=== PATIENT | male | born 1970 | race Caucasian/White ===

== ENCOUNTER 2018-01-03 11:02 | Emergency (ER) | payer MEDICAID ==
[~2018-01-03] VITALS: Ht 167.6 cm; Wt 58.1 kg
[2018-01-03 11:18] VITALS: BP 143/102
[2018-01-03] MEDS ORDERED: NACL 0.9% 1,000 ML IV ONE (11:40)
[2018-01-03] MEDS ORDERED: FAMOTIDINE 20 MG/2 ML VIAL IVP ONE (12:15)
[2018-01-03] MEDS ORDERED: ONDANSETRON 4 MG/2 ML VIAL IVP ONE (12:15)
[2018-01-03] MEDS ORDERED: ceFAZolin 1,000 MG VIAL ONE (12:15)
[2018-01-03] MEDS ORDERED: MORPHINE SULFATE 2 MG/ML SYR IVP ONE (12:15)
[2018-01-03 12:38] LABS: BASOPHILS % (AUTO) 0.3 % (0.0-2.0); EOSINOPHILS # (AUTO) 0.1 K/uL (0-0.4); EOSINOPHILS % (AUTO) 1.2 % (0.0-4.0); HEMATOCRIT 44.4 % (36-52); HEMOGLOBIN 14.6 g/dL (12.0-18.0); LYMPHOCYTES # (AUTO) 1.5 K/uL (2.0-11.5); LYMPHOCYTES % (AUTO) 16.3 % (20.5-51.1); MEAN CORPUSCULAR HEMOGLOBIN 29 pg (27-31); MEAN CORPUSCULAR HGB CONC 33 g/dL (33-37); MEAN CORPUSCULAR VOLUME 87.8 fL (80-94); MONOCYTES # (AUTO) 0.7 K/uL (0.8-1.0); NEUTROPHILS % (AUTO) 75.2 % (42.2-75.2); PLATELET COUNT (AUTO) 144 K/uL (140-450); RED BLOOD CELL COUNT(AUTO) 5.06 MIL/uL (4.20-6.10); RED CELL DISTRIBUTION WIDTH 13.4 % (11.6-13.7); WHITE BLOOD COUNT (AUTO) 9.3 K/uL (4.8-10.8)
[2018-01-03 12:49] LABS: ANION GAP 7.5 (8-16); CARBON DIOXIDE 31.6 mmol/L (21-32); POTASSIUM 4.1 mmol/L (3.5-5.1)
[2018-01-03 12:53] LABS: PROTHROMBIN TIME 9.9 secs (10.8-13.4)
[2018-01-03 12:55] LABS: ALBUMIN 3.7 g/dL (3.4-5.0); TOTAL BILIRUBIN 0.5 mg/dL (0.0-1.0)
[2018-01-03 13:11] LABS: COLOR,URINE YELLOW (YELLOW)
[2018-01-03 13:12] LABS: BLOOD, URINE NEGATIVE (NEGATIVE); UGLUCOSE NEGATIVE (NEGATIVE)
[2018-01-03 13:13] LABS: APPEARANCE,URINE CLEAR (CLEAR); BILIRUBIN,URINE NEGATIVE (NEGATIVE); LEUKOCYTE ESTERASE ,URINE NEGATIVE (NEGATIVE); NITRITE, URINE NEGATIVE (NEGATIVE)
[2018-01-03 14:08] VITALS: BP 111/72
== END 2018-01-03 14:08 | disposition home or self-care (01) ==
LOC: MED 11:02
DX: S00.83XA Contusion of other part of head, initial encounter (principal); S20.20XA Contusion of thorax, unspecified, initial encounter; S80.02XA Contusion of left knee, initial encounter; S80.01XA Contusion of right knee, initial encounter; S30.1XXA Contusion of abdominal wall, initial encounter; I10 Essential (primary) hypertension; V09.9XXA Pedestrian injured in unspecified transport accident, initial encounter; Y93.I9 Activity, other involving external motion; Y92.488 Other paved roadways as the place of occurrence of the external cause; Y99.8 Other external cause status
CPT/HCPCS: 36415; 70450; 70486; 71250; 72125; 74176; 80053; 81003; 82150; 83690; 84484; 85025; 85610; 85730; 86886; 86900; 86901; 90471; 90715; 93005; 96365; 96375; 99285; J0690; J2270; J2405; J3490